=== PATIENT | female | born 1995 | race Caucasian/White ===

== ENCOUNTER → 2020-05-28 | Outpatient (REF) | payer MEDICAID ==
[2020-05-28 17:58] LABS: HEMATOCRIT 29.6 % (36.0-52.0); HEMOGLOBIN 9.7 g/dl (12.0-18.0); MEAN CORPUSCULAR HEMOGLOBIN 29.7 pg; MEAN CORPUSCULAR HGB CONC 32.8 g/dl (32.0-36.5); MEAN CORPUSCULAR VOLUME 90.5 fl (80.0-96.0); PLATELET COUNT, AUTOMATED 214 10^3/uL (150-450); RED BLOOD COUNT 3.27 10^6/uL (4.10-5.30); WHITE BLOOD COUNT 11.5 10^3/uL (4.5-12.0)
== END ==
LOC: M PLALAB 14:24 → EDSEX 14:24
PROVIDERS: ATTEND Obstetrics & Gynecology
DX: Z34.93 Encounter for supervision of normal pregnancy, unspecified, third trimester (principal); Z3A.28 28 weeks gestation of pregnancy

== ENCOUNTER 2020-08-24 07:25 | Inpatient (IN) | payer MEDICAID, OTHER ==
[~2020-08-24] VITALS: Ht 152.4 cm; Wt 62.2 kg
[2020-08-24] VITALS (14 sets, daily range): BP systolic 100–147; BP diastolic 55–78
[2020-08-24] MEDS ORDERED: FERR325T81 PO (07:49)
[2020-08-24] MEDS ORDERED: PRENTAB9 PO (07:49)
[2020-08-24] MEDS ORDERED: PENICILLIN G POTASSIUM IV 5 MU in D5W MINI-BAG PLUS 100 ML IV STA (09:05)
[2020-08-24] MEDS: miSOPROStol 50MCG 1/2 TABLET PO SCH ×4 (09:12→21:40)
[2020-08-24 09:35] LABS: HEMATOCRIT 32.7 % (36.0-47.0); HEMOGLOBIN 11.4 g/dl (12.0-15.5); MEAN CORPUSCULAR HEMOGLOBIN 29.8 pg (27.0-33.0); MEAN CORPUSCULAR HGB CONC 34.9 g/dl (32.0-36.5); MEAN CORPUSCULAR VOLUME 85.4 fl (80.0-96.0); PLATELET COUNT, AUTOMATED 191 10^3/uL (150-450); RED BLOOD COUNT 3.83 10^6/uL (4.00-5.40); WHITE BLOOD COUNT 9.8 10^3/uL (4.0-10.0)
[2020-08-24] MEDS ORDERED: PENICILLIN G POTASSIUM IV 2.5 MU in IV 1 EA IV SCH (13:05)
[2020-08-24] MEDS ORDERED: PROMETHAZINE INJ 25 MG/ML VIAL (J2550) IV PRN (21:10)
[2020-08-24] MEDS ORDERED: BUTORPHANOL 2 MG/ML INJ (J0595) IV ONE (21:10)
[2020-08-25] VITALS (22 sets, daily range): BP systolic 100–133; BP diastolic 55–101
[2020-08-25] MEDS: miSOPROStol 50MCG 1/2 TABLET PO SCH (02:30)
[2020-08-25] MEDS ORDERED: OXYTOCIN DRIP 30 UNITS in IV 1 EA IV SCH ×2 (09:05→15:40)
--- NOTE | 2020-08-25 09:05 | IPNPDOC ---
Obstetrical Progress Note Date of Service August 25, 2020 Subjective Patient reports she is comfortable. Objective Vital Signs Date Time Temp Pulse Resp B/P (MAP) Pulse Ox O2 Delivery O2 Flow Rate FiO2 08/25/20 07:10 98.4 81 18 105/62 (76) 08/24/20 09:14 98 08/24/20 07:43 Room Air Assessment Heart Rate (FHR): 140 Variability: Minimal to moderate Accelerations: Positive (10x10) Decelerations: None Heart Rate Tracing: Category I Tocometer Contractions: Yes Frequency: regular Sterile Vaginal Examination Dilation: 2cm Effacement (%): 90% Station: -1 Cervical Consistency: Soft Cervical Position: Anterior Postion/Presentation: Cephalic presentation Assessment and Plan EGA at Admission: 40 Weeks & Days 40.1 Status: Reassuring Group B Streptococcus: Positive Anticipate: Vaginal Delivery Additional Comments Silver bulb placed with 60cc of NS. IV Pitocin to be started per order. JACE SANCHEZ CNM August 25, 2020 09:05
[2020-08-25] MEDS: LR 1,000 ML IV SCH ×3 (09:22→16:43)
[2020-08-25] MEDS ORDERED: PENICILLIN G POTASSIUM 5 MU VIAL As Ordered ONE (09:42)
[2020-08-25] MEDS ORDERED: PENICILLIN G POTASSIUM IV 5 MU in D5W MINI-BAG PLUS 100 ML IV STA (09:42)
[2020-08-25] MEDS ORDERED: FENTANYL 2MCG/ML ROPIVACAINE 0.2% IN 0.9% NACL 100ML IVBAG As Ordered ONE (11:14)
[2020-08-25] MEDS ORDERED: REFRIGERATOR IV KEYS XX PRN (12:40)
[2020-08-25] MEDS ORDERED: FENTANYL/ROPIVACAINE/NACL BAG 100 ML EPIDURAL SCH (12:40)
[2020-08-25] MEDS ORDERED: diphenhydrAMINE 50MG/ML VIAL (J1200) IV PRN ×2 (12:40→15:33)
[2020-08-25] MEDS ORDERED: EPIDURAL COMMENT XX SCH (12:40)
[2020-08-25] MEDS ORDERED: ONDANSETRON 4MG/2ML VIAL IV PRN ×4 (12:40→16:50)
[2020-08-25] MEDS ORDERED: ePHEDrine SULFATE 25 MG/5 ML(5MG/ML) SYRINGE IV PRN (12:40)
[2020-08-25] MEDS ORDERED: NALOXONE INJ 0.4MG/1ML VIAL (J2310 PER 1MG) IV PRN ×3 (12:40→15:33)
[2020-08-25] MEDS ORDERED: LACTATED RINGER'S 1000 ML IV PRN (12:40)
[2020-08-25] MEDS ORDERED: EPIDURAL/PCA KEYS XX PRN (12:40)
--- NOTE | 2020-08-25 13:51 | IPNPDOC ---
Obstetrical Progress Note Date of Service August 25, 2020 Subjective Patient is comfortable with her epidural. Objective Vital Signs Date Time Temp Pulse Resp B/P (MAP) Pulse Ox O2 Delivery O2 Flow Rate FiO2 08/25/20 12:29 85 100/69 (79) 08/25/20 07:10 98.4 18 08/24/20 09:14 98 08/24/20 07:43 Room Air Assessment Heart Rate (FHR): 140 Variability: Minimal to moderate Accelerations: None Decelerations: Variable Heart Rate Tracing: Category II Tocometer Contractions: Yes Frequency: regular Sterile Vaginal Examination Dilation: 5 cm Effacement (%): 90% Station: -2 Cervical Consistency: Soft Cervical Position: Anterior Postion/Presentation: Cephalic presentation Assessment and Plan Age: 25 : [address] Cabral notified of strip and will be up to access patient. JACE SANCHEZ CNM August 25, 2020 13:51
[2020-08-25] MEDS ORDERED: PENICILLIN G POTASSIUM IV 2.5 MU in IV 1 EA IV SCH (14:00)
[2020-08-25] MEDS ORDERED: AZITHROMYCIN INJ 500 MG, VIAL MATE ADAPTER 1 EACH in NS 250 ML IV ONE (14:40)
[2020-08-25] MEDS ORDERED: BICITRA 30ML SOLN UDC PO ONE (14:40)
[2020-08-25] MEDS ORDERED: ceFAZolin SOD 2 GM in IV 1 EA IV ONE (14:40)
[2020-08-25] MEDS ORDERED: ceFAZolin 2 GM/D5W 50 ML IV BAG (J0690 PER 500MG) As Ordered ONE (14:45)
[2020-08-25] MEDS ORDERED: BICITRA 30ML SOLN UDC As Ordered ONE (14:45)
[2020-08-25] MEDS ORDERED: LIDOCAINE 2% W/EPINEPHRINE 20ML VIAL **PRES FREE As Ordered ONE (14:47)
[2020-08-25] MEDS ORDERED: OXYTOCIN INJ 10 UNITS/ML VIAL (J2590) As Ordered ONE ×2 (14:51→15:25)
[2020-08-25] MEDS ORDERED: dexameTHASONE 4 MG/ML 1ML VIAL (J1100 PER 1MG) As Ordered ONE (14:51)
[2020-08-25] MEDS ORDERED: PHENYLephrine 500MCG 5ML (100MCG/ML) SYRINGE As Ordered ONE (15:25)
[2020-08-25] MEDS ORDERED: KETOROLAC 60MG 2ML VIAL As Ordered ONE (15:29)
[2020-08-25] MEDS ORDERED: MORPHINE PRES-FREE INJ 10 MG/10 ML VIAL (J2274) As Ordered ONE (15:29)
[2020-08-25] MEDS ORDERED: NALBUPHINE HCL 10 MG/ML AMP (J2300) IV PRN (15:33)
[2020-08-25] MEDS ORDERED: METOCLOPRAMIDE INJ 10MG/2ML VIAL (J2765 PER 1) IV PRN (15:33)
[2020-08-25] MEDS ORDERED: METOCLOPRAMIDE INJ 10MG/2ML VIAL (J2765 PER 1) As Ordered ONE (15:37)
[2020-08-25] MEDS ORDERED: SIMETHICONE 80MG CHEW TAB PO PRN (15:40)
[2020-08-25] MEDS ORDERED: RHOGAM 300 MCG (1500 IU) INJ (J2790) IM SCH (15:40)
[2020-08-25] MEDS ORDERED: MOM 30ML SUSPENSION UDC PO PRN (15:40)
[2020-08-25] MEDS ORDERED: METHYLERGONOVINE MALEATE 0.2 MG TAB PO PRN (15:40)
[2020-08-25] MEDS ORDERED: MEASLES,MUMPS,RUBELLA VACCINE INJ (MMR-II) (90707) SC SCH (15:40)
[2020-08-25] MEDS ORDERED: PERCOCET 5MG/325MG TAB PO PRN ×3 (15:40→16:50)
[2020-08-25 15:43] LABS: CORD GAS ABE A -4.6; CORD GAS O2 SAT A 33.8 %; CORD GAS PCO2 A 51.7 mmHg; CORD GAS PH A 7.266 UNITS; CORD GAS PO2 A 18.4 mmHg; CORD GAS SBC A 19.1 MEQ/L; CORD GAS TCO2 A 24.6 MEQ/L
[2020-08-25] MEDS ORDERED: KETOROLAC 30 MG/ML 1ML VIAL IV PRN (15:43)
[2020-08-25 15:44] LABS: CORD GAS ABE V -5.6; CORD GAS HCO3 V 19.1 MEQ/L; CORD GAS O2 SAT V 43.1 %; CORD GAS PCO2 V 35.8 mmHg; CORD GAS PH V 7.346 UNITS; CORD GAS PO2 V 20.4 mmHg; CORD GAS SBC V 18.6 MEQ/L; CORD GAS TCO2 V 20.2 MEQ/L
--- NOTE | 2020-08-25 15:55 | ROOPDOC ---
[facility] Report Of Operation Report of Operation DATE OF PROCEDURE: 08/25/2020 PREPROCEDURE DIAGNOSES: 40+ weeks gestation, nonreassuring heart rate tracing POSTPROCEDURE DIAGNOSES: Same PROCEDURE: Primary low transverse section SURGEON: Piter Cabral DO FACOG LEGAL ASSISTANT: Geo Cespedes CNM (Essential role in retraction, extraction, and closure of all tissue layers) ANESTHESIA: Epidural ESTIMATED BLOOD LOSS: 500 mL. IV FLUIDS: 900 mL LR URINE OUTPUT: 50 mL COMPLICATIONS: None. PREOPERATIVE ANTIBIOTICS: Ancef 2g IV x 1, Azithromycin 500mg IV. COMPLICATIONS: none DATA: Apgars 3 and 9. Birthweight 2950 g, 6 lbs 8 oz. Cord gases: arterial pH 7.27, -4.6 , venous pH 7.35, -5.6 SPECIMENS: none PRIMARY INDICATION FOR : Non-reassuring heart rate tracing. DESCRIPTION OF PROCEDURE: The patient was counseled on the risks, benefits, indications and alternatives of the procedure. Informed consent was obtained. She was taken to the operating room with IV running and placed on the operating table in the dorsal supine position with a leftward tilt. Regional anesthesia was found to be adequate. Sequential compression devices were placed on the lower extremities. A Silver catheter was placed under sterile conditions. She was prepared and draped in normal sterile fashion. A time out was performed per protocol. Regional anesthesia was again found to be adequate. A Pfannenstiel skin incision was made with the 10 blade. The 10 blade was used to dissect down to the level of the rectus sheath fascia. The rectus sheath pressure was incised midline and this was extended bilaterally with Haney scissors , and manual stretch. The rectus muscle bellies were dissected off the rectus sheath fascia superiorly and inferiorly using both sharp and blunt dissection. The midline was identified. The peritoneum was identified and ente red digitally. The peritoneal opening was extended with manual stretch. The Mobius retractor was placed. The vesicouterine peritoneum was dissected with Metzenbaum scissors to create the bladder flap. A low transverse uterine incision was made with the 10 blade. This was extended with manual stretch. The amniotic sac was punctured, and clear fluid was noted. The baby delivered through the hysterotomy without difficulty. The cord was doubly clamped and cut, and the baby was handed off to awaiting care. data shown above. The placenta was removed manually. The intrauterine cavity was cleared of all clot and debris. The hysterotomy was closed with 0 Vicryl in running locked fashion. This was reinforced with a second imbricating layer using 0 Monocryl in running fashion. Excellent hemostasis of the hysterotomy was noted. The pelvis was irrigated and the fluid suctioned. The Mobius retractor was removed. The peritoneum was closed with 3-0 Vicryl running fashion. The rectus muscle bellies were reapproximated with interrupted stitches using 3-0 Vicryl. The rectus muscles bellies were hemostatic. The rectus sheath fascia was closed with 0 Vicryl running fashion. The subcutaneous layer was irrigated and the fluid suctioned. Small bleeding vessels were cauterized with Bovie. Excellent hemostasis was noted. The subcutaneous layer was reapproximated with 3-0 Vicryl running fashion. Skin was closed with 3-0 Monocryl in subcuticular fashion. An Optifoam bandage was placed over the closed incision. Sponge, needle and instrument counts were correct per protocol throughout the procedure. The patient tolerated the entire procedure very well. She was transferred to the PACU in stable condition. DO PRERNA Hardin JONATHAN R. DO August 25, 2020 15:55
[2020-08-25] MEDS ORDERED: PERCOCET PO (16:02)
[2020-08-25] MEDS ORDERED: IBUP80TA PO (16:02)
[2020-08-25] MEDS ORDERED: DOK1CAP7 PO (16:02)
[2020-08-25] MEDS ORDERED: fentaNYL 100 MCG/2 ML INJECTION (J3010) IV PRN (16:50)
[2020-08-25] MEDS: DOCUSATE SODIUM 100MG CAPSULE PO SCH (20:42)
[2020-08-25] MEDS: KETOROLAC 30 MG/ML 1ML VIAL IV SCH (23:35)
[2020-08-26] MEDS: LR 1,000 ML IV SCH (00:21)
[2020-08-26 02:00] VITALS: BP 109/66
[2020-08-26] MEDS: KETOROLAC 30 MG/ML 1ML VIAL IV SCH ×2 (04:36→10:40)
[2020-08-26 06:00] VITALS: BP 129/69
[2020-08-26 07:19] LABS: HEMATOCRIT 32.3 % (36.0-47.0); HEMOGLOBIN 10.9 g/dl (12.0-15.5); MEAN CORPUSCULAR HEMOGLOBIN 29.5 pg (27.0-33.0); MEAN CORPUSCULAR HGB CONC 33.7 g/dl (32.0-36.5); MEAN CORPUSCULAR VOLUME 87.3 fl (80.0-96.0); PLATELET COUNT, AUTOMATED 201 10^3/uL (150-450); WHITE BLOOD COUNT 15.6 10^3/uL (4.0-10.0)
[2020-08-26] MEDS: DOCUSATE SODIUM 100MG CAPSULE PO SCH ×2 (08:33→21:15)
[2020-08-26] MEDS: PRENATAL VITAMINS CHEWABLE TABLET PO SCH (08:33)
[2020-08-26] MEDS ORDERED: BOOSTRIX/ADACEL VACCINE (DIPHTH/PERTUSS/ACELL/TETANUS) 0.5ML SYR IM ONE (09:00)
[2020-08-26 09:40] VITALS: BP 110/50
[2020-08-26 14:04] VITALS: BP 114/58
[2020-08-26] MEDS: IBUPROFEN 800 MG TAB PO SCH (17:59)
[2020-08-26 18:07] VITALS: BP 105/66
[2020-08-26 22:00] VITALS: BP 114/66
[2020-08-27 01:57] VITALS: BP 122/78
[2020-08-27] MEDS: IBUPROFEN 800 MG TAB PO SCH ×2 (02:00→09:52)
[2020-08-27 05:56] VITALS: BP 103/55
[2020-08-27] MEDS: PRENATAL VITAMINS CHEWABLE TABLET PO SCH (08:40)
[2020-08-27] MEDS: DOCUSATE SODIUM 100MG CAPSULE PO SCH (08:40)
--- NOTE | 2020-08-27 10:35 | DSES ---
DISCHARGE SUMMARY DATE OF ADMISSION: 08/24/2020 DATE OF DISCHARGE: 08/27/2020 DISCHARGE DIAGNOSIS: Postoperative day #2 stable condition primary section for nonreassuring heart rate. SURGEON: Piter Cabral DO. ELECTRIC SHAVER MECHANIC: Izzy Cespedes CNM. HISTORY OF PRESENT ILLNESS/HOSPITAL COURSE: Temo is a 25-year-old 2, para 1-0-1-1 now. She was admitted to labor and delivery for induction of labor for intrauterine growth restricted fetus. The decision was made for a primary section due to a nonreassuring heart rate. She delivered a live male weighing 2950 grams, 6 pounds 8 ounces. Apgars were 3 and 9. Estimated blood loss 500 mL. Her postoperative course has been uncomplicated. She has been out of bed for self-care, pericare, and infant care. She is voiding without difficulty, passing flatus, tolerating p.o. fluids, and a regular diet. Her pain has been well managed with p.o. pain medication. DISCHARGE PHYSICAL EXAMINATION: VITAL SIGNS: Temperature 98, pulse 80, respirations 16, BP 103/55. GENERAL: She is alert and oriented x3. BREASTS: Soft and nontender. Nipples are intact. ABDOMEN: Fundus firm at one fingerbreadth below the umbilicus. Her incision dressing is intact. There is no drainage noted whatsoever. Perineum is intact with lochia rubra scant. EXTREMITIES: Bilateral lower extremities with no pitting edema. LABORATORY DATA: Preoperative CBC on 08/24/2020, hemoglobin 11.4, hematocrit 32.7, platelets 191,000. Postoperative CBC on 08/26/2020, hemoglobin 10.9, hematocrit 32.3, and platelets 201,000. DISCHARGE PLAN: Discharge the patient home today. She is to follow-up at [facility] for a two weeks incision check and an eight week visit. I did review discharge instructions that include breast care, incision care, pericare, pelvic rest, activity and lifting restrictions, danger signs to report, and access to care. DISCHARGE MEDICATIONS: Prescriptions for pain medications have been sent by Dr. Cabral to the patient's pharmacy. DISCHARGE DISPOSITION: The patient has had all of her questions answered and does desire discharge home.
--- NOTE | 2020-08-28 13:58 | HPEPDOC ---
Obstetrical History & Physical General Date of Admission August 24, 2020 at 07:25 History of Present Illness 25-year-old 2 para 1 who presents at 40 weeks 0 days by last pressure, here for induction labor. Her course is remarkable for initially been followed for intrauterine growth instruction. Her last growth ultrasound has shown normal growth. Last growth ultrasound August 22 abdomen estimated weight of 3050 g and 35% Chief Complaint: Induction of labor Information Provided By: Patient Age: 25 : 2 Livin Care Care: Good Care Dating Final EDC: August 24, 2020 Final EDC by: LMP EGA at Admission: 40 Past Medical History Past Obstetrical History : Past Obstetrical History: Primgravida Past Medical History Surgical History: Denies/None Family History Significant Family History: Diabetes Social History Marital Status: Single Psychosocial History: No pertinent psych hx * Smoker: non-smoker Alcohol: Denies Drugs: denies Allergies Coded Allergies: No Known Allergies (Unverified , 08/24/20) Medications Scheduled Docusate Sodium (Dok) 100 Mg Capsule, 100 MG PO BID Ferrous Sulfate (Iron) 325 Mg Tablet, 1 TAB PO DAILY Ibuprofen (Ibuprofen) 800 Mg Tablet, 800 MG PO Q8H No.137/Iron/Folic Acd ( Vitamin Tablet) 1 Each Tablet, 1 TAB PO BID Scheduled PRN Oxycodone/Acetaminophen (Oxycodone-Acetaminophen 5-325) 1 Each Tablet, 1 TAB PO Q4H PRN for MILD/MODERATE PAIN (PS 1-7) Physical Examination Physical Examination GENERAL: Alert and oriented times three. BREAST: . ABDOMEN: Gravid and non-tender to touch. FETUS: Is vertex (VTX) by sterile vaginal examination (SVE), fetus is vertex (VTX) by Marcellus. HEART RATE: Regular rate and rhythm. LUNGS: Clear to auscultation (CTA). Vital Signs/I&O Vital Signs Date Time Temp Pulse Resp B/P (MAP) Pulse Ox O2 Delivery O2 Flow Rate FiO2 08/27/20 08:15 Nasal Cannula 08/27/20 05:56 98.0 80 16 103/55 (71) 08/27/20 01:57 97 Laboratory Data 24H LABS Laboratory Tests 2 08/28/20 10:21: Lab Scanned Report Mat/Ped HIV Prevention & Care Program Pertinent Laboratoy Data Blood Type: O+ RBC Antibody Screen: Negative HIV: Negative Hepatitis B: Negative Hepatitis C: Negative Rapid Plasma Reagin: Nonreactive Rubella: Immune Chlamydia/Gonorrhea: Negative Group B Streptococcus: Positive Glucose Tolerance Test: 106 Vaginal Examination Dilation: 1cm Effacement: 50% Station: -3 Cervical Consistency: Firm Cervical Position: Posterior Presentation: Cephalic presentation Assessment Variability: Moderate Decelerations: None Tocometer Contractions: No Assessment/Plan Assessment 25yo at 40w0d for IOL Reassuring status Plan Admit and orient. [facility] Superintendent and consent. Diet: Regular. Group B Streptococcus (GBS) positive. Labs and intravenous (IV) per unit protocol. Counseled on Pitocin and induction of labor (IOL). Anticipate normal spontaneous delivery (). C-S as appropriate. Labor and Delivery Counseling Patient has been thoroughly counseled in regards to induction labor. I've discussed medications as well as procedures performed in labor and delivery. She has been verbally consented for emergency surgery blood products anesthesia and desires to proceed with induction. Plans to initiate her induction labor with 50 g oral misoprostol. ROSANNA DE LA CRUZ MD. August 28, 2020 13:58
== END 2020-08-27 13:50 | disposition home or self-care (01) | DRG 540 ==
LOC: M LDI 07:25 → M OBS 08-25 17:32
PROVIDERS: ADMIT Obstetrics & Gynecology; ATTEND Obstetrics & Gynecology
PROC: 3E0P7GC Introduction of Other Therapeutic Substance into Female Reproductive, Via Natural or Artificial Opening (ICD-10-PCS; 2020-08-24)
PROC: 10D00Z1 Extraction of Products of Conception, Low, Open Approach (ICD-10-PCS; principal; 2020-08-25 15:00)
DX: O48.0 Post-term pregnancy (principal); Z3A.40 40 weeks gestation of pregnancy; Z37.0 Single live birth; O99.824 Streptococcus B carrier state complicating childbirth; O76 Abnormality in fetal heart rate and rhythm complicating labor and delivery; O69.81X0 Labor and delivery complicated by cord around neck, without compression, not applicable or unspecified; O77.0 Labor and delivery complicated by meconium in amniotic fluid